=== PATIENT | female | born 1985 | race Caucasian/White ===

== ENCOUNTER 2024-10-08 16:32 | Emergency (ER) | payer OTHER ==
[~2024-10-08] VITALS: Ht 157.5 cm; Wt 54.9 kg
[2024-10-08 16:59] VITALS: BP 114/86; TEMP 97.9; O2SAT 98
[2024-10-08] MEDS ORDERED: KETOROLAC TROMETHAMINE 15 MG/ML VIAL ONE (17:09)
[2024-10-08] MEDS: KETOROLAC TROMETHAMINE 15 MG/ML VIAL IM ONE (17:28)
== END 2024-10-08 17:39 | disposition home or self-care (01) ==
LOC: ER 17:01
DX: G58.8 Other specified mononeuropathies (principal)
CPT/HCPCS: 99283; 96372; J1885